=== PATIENT | female | born 1995 | race African-American/Black ===

== ENCOUNTER 2016-12-07 20:45 | Emergency (ER) | payer MEDICAID ==
[2016-12-07] MEDS ORDERED: ACETAMINOPHEN 325 MG TABLET PO ONE (21:36)
--- NOTE | 2016-12-07 21:39 | ER Document Report ---
ED Medical Screen (RME) - General Chief Complaint: Knee Pain Stated Complaint: KNEE PAIN Mode of Arrival: Ambulatory Information source: Patient Notes: 21-year-old female presents to the emergency department complaining of bilateral knee pain over the last day. Reports similar symptoms in the past. Denies trauma or obvious injury, swelling, erythema, or warmth. States is 2 months . I have greeted and performed a rapid initial assessment of this patient. A comprehensive ED assessment and evaluation of the patient, analysis of test results and completion of the medical decision making process will be conducted by additional ED providers. TRAVEL OUTSIDE OF THE [place] IN LAST 30 DAYS: No - Related Data Allergies/Adverse Reactions: latex Allergy (Verified 10/04/16 23:44) Past Medical History - Social History Chew tobacco use (# tins/day): No Frequency of alcohol use: None Drug Abuse: None Renal/ Medical History: Denies: Hx Peritoneal Dialysis - Immunizations Immunizations up to date: No Hx Diphtheria, Pertussis, Tetanus Vaccination: Yes Physical Exam - Vital signs Vitals: Temp Pulse Resp BP Pulse Ox 98.0 F 101 H 16 122/67 96 12/07/16 20:54 12/07/16 20:54 12/07/16 20:54 12/07/16 20:54 12/07/16 20:54 - General General appearance: Appears well, Alert In distress: None Course - Vital Signs Vital signs: Temp Pulse Resp BP Pulse Ox 98.0 F 101 H 16 122/67 96 12/07/16 20:54 12/07/16 20:54 12/07/16 20:54 12/07/16 20:54 12/07/16 20:54
[2016-12-07] MEDS ORDERED: DEXAMETHASONE SOD PHOS INJ 10 MG/1 ML VIAL IM ONE (23:46)
[2016-12-07] MEDS ORDERED: TRAMADOL HCL 50 MG TABLET PO ONE (23:46)
--- NOTE | 2016-12-07 23:52 | ER Document Report ---
ED General - General Chief Complaint: Knee Pain Stated Complaint: KNEE PAIN Mode of Arrival: Ambulatory Notes: Patient is a 21-year-old female presents with complaints of pain in both her knees. She has a history of this happening past. She is placed sports. She has received physical therapy in the past for this. She says been over a year since she's had this problem. 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 Today her pain start occurring. Pain is mostly over the patella and suprapatellar ligaments. Pain is worse with flexion of the knees. Patient denies any other injuries or pain. She denies any recent antibiotic use. No other complaints at this time. Patient is currently breast-feeding a 2 -month-old infant. TRAVEL OUTSIDE OF THE [place] IN LAST 30 DAYS: No - Related Data Allergies/Adverse Reactions: latex Allergy (Verified 10/04/16 23:44) Past Medical History - General Information source: Patient - Social History Smoking Status: Never Smoker Chew tobacco use (# tins/day): No Frequency of alcohol use: None Drug Abuse: None Family History: Reviewed & Not Pertinent Patient has suicidal ideation: No Patient has homicidal ideation: No Renal/ Medical History: Denies: Hx Peritoneal Dialysis - Immunizations Immunizations up to date: No Hx Diphtheria, Pertussis, Tetanus Vaccination: Yes Hx Pneumococcal Vaccination: 11/16/00 Review of Systems - Review of Systems Notes: My Normal Review Basic REVIEW OF SYSTEMS: CONSTITUTIONAL : Denies fever, chills, or sweats. Denies recent illness. MUSCULOSKELETAL: Pain in both knees. SKIN: Denies rash or skin lesions.. NEUROLOGICAL: Denies altered mental status or loss of consciousness. Denies headache. Denies weakness or paralysis or loss of use of either side. Denies problems with gait or speech. Denies sensory or motor loss. ALL OTHER SYSTEMS REVIEWED AND NEGATIVE. Physical Exam - Vital signs Vitals: Temp Pulse Resp BP Pulse Ox 98.0 F 101 H 16 122/67 96 12/07/16 20:54 12/07/16 20:54 12/07/16 20:54 12/07/16 20:54 12/07/16 20:54 - Notes Notes: General Appearance: Well nourished, alert, cooperative, no acute distress, mild to moderate obvious discomfort. Vitals: reviewed, See vital signs table. Extremities: strength 5/5 in all extremities, good pulses in all extremities, pain to palpation over 5 all patellas and mostly over suprapatellar ligaments. Patient is able flex and extend her knees but does have some pain with flexion. No redness or swelling to the knees. No warmth., no edema. Skin: warm, dry, appropriate color, no rash Neuro: speech clear, oriented x 3, normal affect, responds appropriately to questions. Course - Vital Signs Vital signs: Temp Pulse Resp BP Pulse Ox 98.0 F 101 H 16 122/67 96 12/07/16 20:54 12/07/16 20:54 12/07/16 20:54 12/07/16 20:54 12/07/16 20:54 - Transfer of Care Notes: 12/07/16 23:53 Patient looks well. I feel the patient safe to be discharged home. This no redness or swelling to the knees. No evidence of infection. The pain she is having she says is exactly like her previous knee pain since she's had the past. No recent trauma or injuries. I encourage her to buy [id number] neoprene knee braces. I encourage her to follow up with orthopedic clinic. She may need recurrent physical therapy like she's had the past. Encourage return to ER shows redness, swelling, warmth, or if she feels that her knees are worsening. Patient agrees with plan and will be discharged home. Dictation of this chart was performed using voice recognition software; therefore, there may be some unintended grammatical errors. Discharge - Discharge Clinical Impression: Knee pain, bilateral Qualifiers: Chronicity: chronic Qualified Code(s): M25.561 - Pain in right knee; M25.562 - Pain in left knee; G89.29 - Other chronic pain Condition: Good Disposition: HOME, SELF-CARE Additional Instructions: Please by neoprene knee braces that have the hole cut out for the knee cap. Please wear these for supportive her knee. Please pump and dump her breast milk for the next 3 days due to the steroid shot your receiving. Please do not drive or care for your child alone if you take one of the stronger pain medicine (tramadol) as this medicine may make you sleepy or impair your judgment. Please follow-up with the orthopedist, Dr. Lui, for reevaluation and further workup of your knee pain. Please return to ER immediately if you have redness or swelling to your knees. Prescriptions: Tramadol HCl 50 mg PO Q6 PRN #15 tablet PRN Reason: Referrals: KRISTIAN LUI MD [ACTIVE STAFF] - Follow up in 3-5 days
[2016-12-08 01:00] VITALS: BP 125/88
== END 2016-12-08 01:00 | disposition home or self-care (01) ==
LOC: ER 20:45
DX: M25.561 Pain in right knee (principal); M25.562 Pain in left knee; Z91.040 Latex allergy status
CPT/HCPCS: 99283; 96372; J3490; J1100

== ENCOUNTER → 2016-12-17 | Outpatient (CLI) | payer MEDICAID | LOC: OD 13:42 | PROVIDERS: ATTEND Family Medicine | DX: M25.562 Pain in left knee (principal); M25.561 Pain in right knee ==

== ENCOUNTER 2017-01-23 20:17 | Emergency (ER) | payer MEDICAID ==
--- NOTE | 2017-01-23 20:43 | ER Document Report ---
ED Medical Screen (RME) - General Chief Complaint: Headache >24 hrs old Stated Complaint: HEADACHE/BACK PAIN Notes: Patient reports a history of migraines, and this one started on Thursday. Denies cough or congestion. Does complain of back pain, headache, and feels dizzy sometimes when she turns her head. Denies neck pain. Patient did get some relief from headache with Excedrin Migraine. Patient denies chest pain, shortness of breath. Patient states that she is currently breast-feeding, and has a 3-month-old at home. I have greeted and performed a rapid initial assessment of this patient. A comprehensive ED assessment and evaluation of the patient, analysis of test results and completion of the medical decision making process will be conducted by additional ED providers. TRAVEL OUTSIDE OF THE [place] IN LAST 30 DAYS: No - Related Data Allergies/Adverse Reactions: latex Allergy (Verified 10/04/16 23:44) Past Medical History Renal/ Medical History: Denies: Hx Peritoneal Dialysis - Immunizations Immunizations up to date: No Hx Diphtheria, Pertussis, Tetanus Vaccination: Yes Physical Exam - Vital signs Vitals: Temp Pulse Resp BP Pulse Ox 100.7 F H 154 H 18 111/76 100 01/23/17 20:32 01/23/17 20:32 01/23/17 20:32 01/23/17 20:32 01/23/17 20:32 - Respiratory Respiratory status: No respiratory distress Breath sounds: Normal - Cardiovascular Rhythm: Regular, Tachycardia Notes: Patient denies history of tachycardia. Course - Vital Signs Vital signs: Temp Pulse Resp BP Pulse Ox 100.7 F H 154 H 18 111/76 100 01/23/17 20:32 01/23/17 20:32 01/23/17 20:32 01/23/17 20:32 01/23/17 20:32
[2017-01-23] MEDS ORDERED: ACETAMINOPHEN 325 MG TABLET PO ONE (20:44)
[2017-01-23] MEDS ORDERED: ONDANSETRON HCL INJ/PF 4 MG/2 ML SDV IV ONE (23:11)
[2017-01-23] MEDS ORDERED: NORMAL SALINE 1000 ML 2,000 ML IV PRN (23:11)
[2017-01-23] MEDS ORDERED: KETOROLAC TROMETHAMINE INJ/PF 30 MG/1 ML SDV IV ONE (23:11)
[2017-01-24 00:12] LABS: APPEARANCE,URINE CLOUDY; BILIRUBIN,URINE NEGATIVE (NEGATIVE); GLUCOSE, URINE NEGATIVE (NEGATIVE); KETONES,URINE 20 mg/dL (NEGATIVE); LEUKOCYTE ESTERASE,URINE MODERATE (NEGATIVE); NITRITE,URINE POSITIVE (NEGATIVE); PROTEIN,URINE 100 mg/dL (NEGATIVE); URINE SPECIFIC GRAVITY 1.026
[2017-01-24 00:16] LABS: ABSOLUTE BASOPHILS # (AUTO) 0.1 10^3/uL (0.0-0.2); ABSOLUTE LYMPHOCYTES (AUTO) 1.4 10^3/uL (0.5-4.7); ABSOLUTE MONOCYTES (AUTO) 1.1 10^3/uL (0.1-1.4); ABSOLUTE NEUT (AUTO) 10.1 10^3/uL (1.7-8.2); BASOPHILS % (AUTO) 0.5 % (0-2); EOSINOPHILS % (AUTO) 0.1 % (0-6); HEMATOCRIT 37.8 % (36.0-47.0); HEMOGLOBIN 12.7 g/dL (12.0-15.5); HGB HCT DIFFERENCE 0.3; LYMPHOCYTES % (AUTO) 11.1 % (13-45); MEAN CORPUSCULAR HEMOGLOBIN 28.9 pg (27.0-33.4); MEAN CORPUSCULAR HGB CONC 33.5 g/dL (32.0-36.0); MEAN CORPUSCULAR VOLUME 86 fl (80-97); MONOCYTES % (AUTO) 8.8 % (3-13); RED BLOOD COUNT 4.38 10^6/uL (3.72-5.28); RED CELL DISTRIBUTION WIDTH 13.3 % (11.5-14.0); SEGMENTED NEUTROPHILS % (AUTO) 79.5 % (42-78); WHITE BLOOD COUNT 12.7 10^3/uL (4.0-10.5)
--- NOTE | 2017-01-24 00:19 | ER Document Report ---
ED General - General Chief Complaint: Headache >24 hrs old Stated Complaint: HEADACHE/BACK PAIN Time seen by provider: 00:19 Mode of Arrival: Ambulatory Information source: Patient TRAVEL OUTSIDE OF THE [place] IN LAST 30 DAYS: No - HPI Patient complains to provider of: fever, headache, body aches, chills, nausea Onset: Other - 2-3 days Onset/Duration: Persistent, Worse Quality of pain: Achy Severity: Mild Pain Level: 3 Associated symptoms: Body/muscle aches, Fever, Headache, Nausea Exacerbated by: Denies Relieved by: Denies Similar symptoms previously: No Recently seen / treated by doctor: No Notes: Patient is a 21-year-old female who presents to emergency room fever, chills, body aches, migraine headache, nausea, phonophobia and photophobia, symptoms have been going on for the past 2-3 days and worsening, patient states she's been taking Excedrin Migraine at home with no relief of symptoms, denies a head injury, she denies any vaginal bleeding, no dysuria, states she is currently breast-feeding her 3-month-old - Related Data Allergies/Adverse Reactions: latex Allergy (Verified 10/04/16 23:44) Past Medical History - General Information source: Patient - Social History Smoking Status: Never Smoker Chew tobacco use (# tins/day): No Frequency of alcohol use: None Drug Abuse: None Family History: Reviewed & Not Pertinent Patient has suicidal ideation: No Patient has homicidal ideation: No Renal/ Medical History: Denies: Hx Peritoneal Dialysis - Immunizations Immunizations up to date: No Hx Diphtheria, Pertussis, Tetanus Vaccination: Yes Hx Pneumococcal Vaccination: 11/16/00 Review of Systems - Review of Systems Constitutional: See HPI EENT: No symptoms reported Cardiovascular: No symptoms reported Respiratory: No symptoms reported Gastrointestinal: See HPI Genitourinary: No symptoms reported Female Genitourinary: No symptoms reported Musculoskeletal: See HPI Skin: No symptoms reported Hematologic/Lymphatic: No symptoms reported Neurological/Psychological: See HPI -: Yes All other systems reviewed and negative Physical Exam - Vital signs Vitals: Temp Pulse Resp BP Pulse Ox 100.7 F H 154 H 18 111/76 100 01/23/17 20:32 01/23/17 20:32 01/23/17 20:32 01/23/17 20:32 01/23/17 20:32 Interpretation: Tachycardic, Febrile - General General appearance: Alert In distress: None - HEENT Head: Normocephalic, Atraumatic Eyes: Normal Conjunctiva: Normal Extraocular movements intact: Yes Eyelashes: Normal Pupils: PERRL Nasal: Normal Mouth/Lips: Normal Mucous membranes: Normal Pharynx: Normal - Respiratory Respiratory status: No respiratory distress Chest status: Nontender Breath sounds: Normal Chest palpation: Normal - Cardiovascular Rhythm: Regular Heart sounds: Normal auscultation Murmur: No - Abdominal Inspection: Normal Distension: No distension Bowel sounds: Normal Tenderness: Nontender Organomegaly: No organomegaly - Back Back: Normal, Nontender - Extremities General upper extremity: Normal inspection, Nontender, Normal color, Normal ROM , Normal temperature General lower extremity: Normal inspection, Nontender, Normal color, Normal ROM , Normal temperature, Normal weight bearing. No: Cary's sign - Neurological Neuro grossly intact: Yes Cognition: Normal Orientation: AAOx4 [place] Coma Scale Eye Opening: Spontaneous Álvaro Coma Scale Verbal: Oriented [place] Coma Scale Motor: Obeys Commands Álvaro Coma Scale Total: 15 Speech: Normal Motor strength normal: LUE, RUE, LLE, RLE Sensory: Normal - Psychological Associated symptoms: Normal affect, Normal mood - Skin Skin Temperature: Warm Skin Moisture: Dry Skin Color: Normal Course - Re-evaluation Re-evalutation: 01/24/17 00:43 Patient resting comfortably, reports feeling much better, vital signs are improved, laboratory evaluation is consistent with urinary tract infection, patient will be started on antibiotics, advised to continue drinking plenty of fluids, Tylenol or Motrin as needed for fever or body aches, follow up with her primary care provider or return if symptoms worsen, patient acknowledges understanding and agreement with this plan - Vital Signs Vital signs: Temp Pulse Resp BP Pulse Ox 98.0 F 154 H 18 101/58 L 100 01/24/17 00:11 01/23/17 20:32 01/23/17 20:32 01/24/17 00:05 01/24/17 00:05 - Laboratory Result Diagrams: 01/23/17 23:54 01/23/17 23:54 Laboratory results interpreted by me: 01/23/17 01/23/17 01/23/17 23:32 23:54 23:54 WBC 12.7 H Seg Neutrophils % 79.5 H Lymphocytes % 11.1 L Absolute Neutrophils 10.1 H Total Bilirubin 2.0 H Urine Protein 100 H Urine Ketones 20 H Urine Blood LARGE H Urine Nitrite POSITIVE H Urine Urobilinogen 4.0 H Ur Leukocyte Esterase MODERATE H Discharge - Discharge Clinical Impression: Urinary tract infection Qualifiers: Urinary tract infection type: site unspecified Hematuria presence: without hematuria Qualified Code(s): N39.0 - Urinary tract infection, site not specified Condition: Stable Disposition: HOME, SELF-CARE Instructions: Urinary Tract Infection ([facility]), Cephalexin ([facility]) Additional Instructions: Drink plenty fluids and get plenty of rest. Tylenol or Motrin as needed for fever or body aches. Follow up with your primary care provider in 2-3 days. Return to the emergency room immediately if symptoms worsen or any additional concerns. Prescriptions: Cephalexin Monohydrate [Keflex 500 mg Capsule] 500 mg PO BID #20 capsule
[2017-01-24 00:20] LABS: ALANINE AMINOTRANSFERASE 22 U/L (9-52); ALBUMIN 4.4 g/dL (3.5-5.0); ALKALINE PHOSPHATASE 85 U/L (38-126); ANION GAP 16 (5-19); ASPARTATE AMINO TRANSFERASE 16 U/L (14-36); BLOOD UREA NITROGEN 12 mg/dL (7-20); CALCIUM 9.6 mg/dL (8.4-10.2); CARBON DIOXIDE 22 mmol/L (22-30); CHLORIDE 100 mmol/L (98-107); GLUCOSE 92 mg/dL (75-110); POTASSIUM 3.8 mmol/L (3.6-5.0); SODIUM 138.1 mmol/L (137-145); TOTAL PROTEIN 7.2 g/dL (6.3-8.2)
[2017-01-24] MEDS ORDERED: CEPHALEXIN 500 MG CAPSULE PO ONE (00:43)
[2017-01-24 01:05] VITALS: BP 109/76
== END 2017-01-24 01:03 | disposition home or self-care (01) ==
LOC: ER 20:17
DX: N39.0 Urinary tract infection, site not specified (principal); G43.909 Migraine, unspecified, not intractable, without status migrainosus; H53.149 Visual discomfort, unspecified; R50.9 Fever, unspecified; R00.0 Tachycardia, unspecified; M79.1 Myalgia; R11.0 Nausea; Z91.040 Latex allergy status
CPT/HCPCS: 99283; 96361; 96374; 96375; 36415; 85025; 81025; 80053; 81001; 87804; J3490; J1885; J2405; J7030